=== PATIENT | female | born 1955 | race Caucasian/White ===

== ENCOUNTER → 2023-03-23 12:57 | Outpatient (REF) | payer MEDICARE, OTHER, SELFPAY | LOC: DHCBS MAIN 12:57 | PROVIDERS: ATTENDING PHYSICIAN Internal Medicine Cardiovascular Disease; FAMILY PHYSICIAN Internal Medicine | DX: I47.10 Supraventricular tachycardia, unspecified (principal) | CPT/HCPCS: 93306 ==

== ENCOUNTER 2023-05-29 10:44 | Day surgery (SDC) | payer MEDICARE, OTHER, SELFPAY ==
[2023-05-29 11:55] VITALS: BMI 28.4
--- NOTE | 2023-05-29 14:31 | ITS.CL.IMPLP ---
Senior Cytotechnologist - Implant Loop
Implant Loop
Procedure Report:
Date of Procedure: 05/29/23
Primary Care Provider: Dr Emmy Calles
Procedure: Insertable Loop Recorder Implantation
Indication:
Atrial fibrillation
She has a history of paroxysmal atrial fibrillation and underwent PVI + LA tachycardia ablation 12/01/21. No documented or symptomatic recurrences.
She has a [id number] score of 3 for age, HF (recovered) and female sex.
She wishes to stop oral anticoagulation. She tells me she cycles frequently and falls not infrequently although she does wear a helmet.
In the outpatient setting, we discussed options to at least allow consideration for stopping oral anticoagulation and the safest would be to have an implanted loop recorder to monitor for recurrences of atrial fibrillation. I discussed this with her
in detail. I showed her a model of the device and explained the implant procedure and follow-up as well. She wishes to proceed with ILR implantation. She presents now for implantation of a LINQ II loop recorder. She has stopped oral anticoagulation
24 hours prior and we will plan to keep her off anticoagulation as we monitor her. If we see recurrences of atrial fibrillation she understands she would need to resume oral anticoagulation.
Procedure:
The patient was brought to the procedure area in a fasting state. The anterior chest was prepped and draped in standard sterile fashion. The fourth intercostal space along the left sternal border was identified and this area was anesthetized with 10
mL of 1% lidocaine. After gathering the skin in this area, a small punch incision was made at approx intercostal space 4-5 at left costo-sternal junction using the provided scalpel/punch tool. The loop recorder was loaded into the tunneling device.
A tunnel was created in the subcutaneous tissue at a 45� angle along the coronal plane away from the sternum and towards the left flank. The tunneling device was inverted and the plunger was depressed, inserting the loop recorder into the
subcutaneous space. The tunneling device was removed. Manual pressure provide hemostasis. Adequate signal was confirmed. The skin was closed with steri-strips. The estimated blood loss was < 1 cc. A clean dressing was placed over the wound.
There were no complications.
Implant:
[employer] Reveal LINQ
Conclusion: Uncomplicated implantation of loop recorder.
Recommendation: Routine ILR care.
Copy: Dr Emmy Calles
== END 2023-05-29 13:15 | disposition home or self-care (01) ==
LOC: CATH 10:44
PROVIDERS: ATTENDING PHYSICIAN Internal Medicine Cardiovascular Disease; FAMILY PHYSICIAN Internal Medicine
DX: Z09 Encounter for follow-up examination after completed treatment for conditions other than malignant neoplasm (principal); I48.0 Paroxysmal atrial fibrillation; Z79.01 Long term (current) use of anticoagulants
CPT/HCPCS: 33285; C1764